=== PATIENT | female | born 1950 | race Two or more races ===

== ENCOUNTER 2024-04-03 20:45 | Emergency (ER) | payer MEDICARE, MEDICAID, SELFPAY ==
[2024-04-03 20:45] VITALS: BMI 28.2
[2024-04-03 20:56] VITALS: BP 209/111; BP 217/103; PULSE 72; RESP 18; TEMP 36.9; O2SAT 97
[2024-04-03 21:00] VITALS: BP 162/104; PULSE 99; RESP 18; O2SAT 97
--- NOTE | 2024-04-03 21:12 | XR_ITS ---
Examination: CT brain head without contrast. 2-D sagittal coronal reconstructions Date and time of exam:April 03, 2024 2131 hrs. , History multiple myeloma Indications: Headache beginning 3 days ago Comparison: 01/18/2024 CTDI: vol (mGy):44.3 DLP: (mGycm):824 Technique: Multiple CT axial sections of the brain have been obtained, 5 mm slice thickness. Contrast has not been administered. 2-D sagittal, coronal reconstructions have been obtained Low dose protocols were performed. One or more of the following dose reduction techniques were used; automated exposure control, adjustment of the mA and/or KV according to patient size, use of iterative reconstruction technique. Findings: No significant ventricular enlargement. Intra-axial or extra-axial hemorrhage density is not seen. Calcified mass in the left cerebellopontine angle 11 mm again noted likely incidental meningioma Basal cisterns are not remarkable. Fourth ventricle is midline. Again noted 35mm osteolytic lesion right posterior parietal bone Again noted Impression: Negative for acute hemorrhage, mass effect or midline shift Again noted 35mm osteolytic lesion right parietal bone Again noted calcified mass likely meningioma left cerebellopontine angle
--- NOTE | 2024-04-03 21:12 | XR_ITS ---
Examination: PA chest single view Technique: Upright PA chest single view Exam date and time: April 03, 20242 hrs. Indications: Chest pain today Findings: Normal heart size Lungs are clear. The osseous structures are intact Impression: No active disease
--- NOTE | 2024-04-03 21:12 | PD.EDRME ---
Rapid Medical Screening Exam E Arrival date/time: 04/03/24 20:45 73F with history of HTN and bone cancer presents to ED with 3 days of worsening CARVER and CP. Chief Complaint: Headache Vital signs: Vital Signs Temperature 98.4 F 04/03/24 20:56 Pulse Rate 72 04/03/24 20:56 Respiratory Rate 18 04/03/24 20:56 Blood Pressure 209/111 H 04/03/24 20:56 Pulse Oximetry (%) 97 04/03/24 20:56 Oxygen Delivery Method Room Air 04/03/24 20:56
[2024-04-03 21:37] VITALS: BP 191/132; PULSE 103; RESP 18; O2SAT 95
--- NOTE | 2024-04-03 21:40 | EDNOTE_ITS ---
ED Headache RME/HPI General Chief Complaint: Headache Stated Complaint: HEADACHE, CHEST/BACK PAIN Time Seen by Provider: 04/03/24 21:39 Arrival date/time: 04/03/24 20:45 RME / HPI RME / HPI Narrative: 73-year-old female patient with significant history of multiple myeloma, hypertension came in for evaluation regarding headache. Patient still having headache for the last 4 days, described as pulsating, top of the head, severity 5 out of 10. Also complaining of chest pain, radiating to the back for the last 4 days. Denies any cough. Denies any shortness of breath. Denies any slurring of speech denies any upper or lower extremity weakness. Patient is ambulatory. Patient also denies any nausea or vomiting. No fever was noted. Denies any other complaints. Related Data Home Medications ?Medication ?Instructions ?Recorded ?Confirmed naproxen 500 mg tablet (Naprosyn) 500 mg PO BID #0 tabs 12/30/16 10/05/20 benazepril 40 mg tablet 40 mg PO QDAY 10/05/20 10/05/20 dexamethasone 4 mg tablet 20 mg PO QWEEK 10/05/20 10/05/20 lenalidomide 10 mg capsule 10 mg PO QDAY 10/05/20 10/05/20 (Revlimid) pravastatin 40 mg tablet 40 mg PO HS 10/05/20 10/05/20 Previous Rx's ?Medication ?Instructions ?Recorded docusate sodium 100 mg tablet 100 mg PO BID #20 tabs 02/22/23 gabapentin 100 mg capsule 100 mg PO TID #20 caps 02/22/23 cephalexin 500 mg capsule 500 mg PO BID #10 caps 12/18/23 ondansetron 4 mg disintegrating 4 mg PO Q8H PRN nausea and 01/18/24 tablet vomiting #14 tabs ibuprofen 600 mg tablet 600 mg PO TID PRN pain #30 tabs 04/03/24 Allergies Allergy/AdvReac Type Severity Reaction Status Date / Time No Known Allergies Allergy Verified 04/03/24 20:47 Review of Systems Review of Systems Narrative Review of Systems: Review of system reviewed and within normal limits except mentioned in HPI ED Exam Narrative Physical exam: VITAL SIGNS: Reviewed. GENERAL APPEARANCE: Alert and interactive, follows commands, no acute distress, HEAD AND FACE: Non-traumatic. ENT: PERRL, pink conjunctivitis, eyelid no trauma, Mucous membrane moist. NECK: Supple, nontender, no nuchal rigidity. CHEST: No tenderness, no crepitus, no paradoxical movement, no retractions. LUNGS: Clear, well ventilated, symmetric, no rales, no wheezing, no ronchi, no stridor, good breath sounds bilaterally. HEART: Regular rate, regular rhythm, no murmur, no gallops. ABDOMEN: Soft, positive bowel sounds, nondistended, no guarding, nontender, no rebound, no masses, RECTAL: Deferred. GENITAL: Deferred. NEUROLOGICAL: Gross motor function intact sensory function intact, Appropriate for age. MUSCULOSKELETAL: low back nontender, full range of motion. EXTREMITIES: Nontender, full range of motion. SKIN: Color pink, dry, no rash, no lacerations, no abrasions, no contusions. LYMPHATICS: Deferred. Course Quality Measures none Orders Category Date Time Status EKG (ED ONLY) *Do not use* NOW Care 04/03/24 21:[address] head/brain wo con Stat Exams 04/03/24 21:12 Completed EKG (ED Only) Stat Exams 04/03/24 21:07 Ordered XR chest 1V portable Stat Exams 04/03/24 21:12 Completed CBC Stat Lab 04/03/24 21:55 Completed Comprehensive Metabolic Panel Stat Lab 04/03/24 21:55 Results Troponin I Stat Lab 04/03/24 21:55 Results Urinalysis Stat Lab 04/03/24 22:03 Completed Acetaminophen Tab [Tylenol ES Tab] Med 04/03/24 21:48 Discontinued 1,000 mg PO X1 ONE Labetalol IV [Trandate IV] Med 04/03/24 21:48 Discontinued 10 mg IVP X1 ONE Metoclopramide [Reglan] Med 04/03/24 21:48 Discontinued 10 mg PO X1 ONE Vital Signs Vital signs: Vital Signs Temperature 98.4 F 04/03/24 20:56 Pulse Rate 72 04/03/24 20:56 Respiratory Rate 18 04/03/24 20:56 Blood Pressure 209/111 H 04/03/24 20:56 Pulse Oximetry (%) 97 04/03/24 20:56 Oxygen Delivery Method Room Air 04/03/24 20:56 Headache MDM Narrative MDM Narrative:: 73-year-old female patient with significant history of multiple myeloma, hypertension came in for evaluation regarding headache. Patient still having headache for the last 4 days, described as pulsating, top of the head, severity 5 out of 10. Also complaining of chest pain, radiating to the back for the last 4 days. Denies any cough. Denies any shortness of breath. Denies any slurring of speech denies any upper or lower extremity weakness. Patient is ambulatory. Patient also denies any nausea or vomiting. No fever was noted. Denies any other complaints. Patient was given Tylenol and Reglan with complete resolution of headache. Patient's workup today all came back normal troponin is normal EKG within normal limits. Patient's CT scan of the head came back with no acute pathology. Except for osteolytic lesion right parietal bone and calcified mass likely meningioma left cerebellopontine angle with this was noted also from previous CT scan of the head. Results discussed with the patient's and family. Patient data External records reviewed:: None Clinical information provided by:: none Social determinants that could affect healthcare access:: none Patient has the following chronic illnesses:: Multiple myeloma How is presenting disease/condition affected by chronic disease/condition?: exacerbated by Evaluation data The following diagnostics were reviewed and interpreted by me:: lab results, radiology exam(s) and EKG tracing(s) Lab and/or radiology exams considered but not ordered:: None Interpretation Summary: EKG as interpreted by me showed sinus rhythm, ventricular rate of 74 bpm, MN interval 162 MS, no ST segment ovation depression noted. I personally reviewed and interpreted the x-ray of this patient. There is no acute abnormalities fo und, no infiltrates no pneumothorax no hemothorax normal chest x-ray. Review of other structures was without significant abnormal findings also. I additionally reviewed the radiologist report and agree with the interpretation. CT scan of the head showed Negative for acute hemorrhage, mass effect or midline shift Again noted 35mm osteolytic lesion right parietal bone Again noted calcified mass likely meningioma left cerebellopontine angle Laboratory workup all came back unremarkable including normal troponin, CBC is normal, urinalysis no UTI. Troponin is normal, CMP unremarkable. Medications / Prescriptions Medications or Prescriptions considered but not ordered:: None Medication administrations:: Medication Administration History Discontinued Medications Acetaminophen (Acetaminophen 500 Mg Tablet) 1,000 mg PO X1 ONE Stop: 04/03/24 21:49 Labetalol HCl (Labetalol Inj 5 Mg/Ml Vial 20 Ml) 10 mg IVP X1 ONE Stop: 04/03/24 21:49 Last Admin: 04/03/24 22:56 Dose: Not Given Documented By: TC Non-Admin Reason: Change of Condition Metoclopramide HCl (Metoclopramide 5 Mg Tablet) 10 mg PO X1 ONE Stop: 04/03/24 21:49 Tylenol, Reglan Consultations Consultation(s) initiated? (list below): No Diagnosis Differential diagnosis headache: migraine, headache and other Most likely diagnosis given after review of the tests above:: Headache Admission Indicated Admission indicated?: not indicated Explain why admission is indicated or not indicated:: Stable for discharge, patient verbalized complete resolution of headache after Reglan and Tylenol Admission Request Was there a request for admission?: No Disposition Plan Disposition Plan: Discharge Discharge Attestation Discharge Attestation: The patient and all family members were given an opportunity to ask questions and understood the discharge instructions. Discharge instructions specifically effects, indications for sooner follow up or return to the emergency department, and the expected course of current diagnosis. Patient condition: Stable Discharge Plan Plan Patient Disposition: HOME (Self Care) Disposition Comment: Stable Prescriptions/Referrals Prescriptions/Med Rec: New ibuprofen 600 mg tablet 600 mg PO TID PRN (Reason: pain) Qty: 30 0RF No Action naproxen [Naprosyn] 500 MG tablet 500 mg PO BID Qty: 0 Patient Comments: PRN PAIN pravastatin 40 mg Tablet 40 mg PO HS dexamethasone 4 mg tablet 20 mg PO QWEEK Rx Instructions: TUESDAYS. benazepril 40 mg Tablet 40 mg PO QDAY Revlimid 10 mg Capsule 10 mg PO QDAY gabapentin 100 mg capsule 100 mg PO TID Qty: 20 0RF docusate sodium 100 mg tablet 100 mg PO BID Qty: 20 0RF cephalexin 500 mg capsule 500 mg PO BID Qty: 10 0RF ondansetron 4 mg tablet,disintegrating 4 mg PO Q8H PRN (Reason: nausea and vomiting) Qty: 14 0RF Referrals: Elver Reyes MD [Primary Care Provider] - In 1 week Problem List Clinical Impression: Headache, History of multiple myeloma Patient/Caregiver Discharge Instructions Education Materials: Self-Care for Headaches Additional Instructions: Thank you for the opportunity for serving you today. You are stable for discharged . You are advised to: Follow-up with your PCP in 1 to 2 days Return to ED for worsening of symptoms Increase oral fluids Take medication as prescribed Print Language: B[place] Stand Alone Forms: Kelsi Award Info., Patient Portal Info Letter PA/PRABHAKAR Supervising Physician MAU/PRABHAKAR Supervising Physician: MD Precious
[2024-04-03 22:01] LABS: Basophils % (Auto) 0 % (0-2.5); Eosinophils # (Auto) 0.1 Thou/mm3 (0.0-0.5); Eosinophils % (Auto) 1 % (0-10); Hematocrit 36.7 % (36.0-46.0); Hemoglobin 13.3 g/dL (12.0-16.0); Immature Granulocytes % (Auto) 0 % (0-0); Immature Granulocytes Auto 0.01 Thou/mm3 (0.00-0.00); Lymphocytes # (Auto) 1.6 Thou/mm3 (1.0-4.8); Lymphocytes % (Auto) 35 % (10-50); Mean Corpuscular HGB Conc 36.2 g/dl (31.0-37.0); Mean Corpuscular Hemoglobin 32.4 pg (25.0-35.0); Mean Corpuscular Volume 89 fL (80-100); Monocytes # (Auto) 0.5 Thou/mm3 (0.0-0.8); Monocytes % (Auto) 10 % (0-12); Neutrophils # (Auto) 2.4 Thou/mm3 (1.8-7.7); Neutrophils % (Auto) 53 % (37-80); Nucleated Red Blood Cell % 0 /100 WBC (0); Platelet Count 252 Thou/mm3 (140-440); RDW Standard Deviation 39.8 fL (36.4-46.3); Red Blood Count 4.11 Miln/mm3 (4.00-5.20); White Blood Count 4.6 Thou/mm3 (3.6-11.0)
[2024-04-03 22:11] LABS: Collection Type, Urine Clean Catch
[2024-04-03 22:13] VITALS: BP 162/79; PULSE 74; RESP 16; O2SAT 98
[2024-04-03 22:14] LABS: Bilirubin,Urine Negative (Negative); Blood,Urine Trace (Negative); Clarity,Urine Clear (Clear/Hazy); Color,Urine Colorless (Lt Yel-Yel); Glucose, Urine Negative (Negative); Ketones,Urine Negative (Negative); Leukocyte Esterase,Urine Negative (Negative); Nitrite,Urine Negative (Negative); PH,Urine 7.5 (5.0-7.0); Protein,Urine Negative (Neg - Trace); RBC,Urine 1 /hpf (0-3); Specific Gravity,Urine 1.008 (1.001-1.035); Squamous Epithelial Cell,Urine < 1 /hpf (0-5); Urobilinogen,Urine Negative mg/dL (0.0-1.0); WBC,Urine 1 /hpf (0-5)
[2024-04-03 22:59] LABS: Alanine Aminotransferase 24 U/L (10-49); Albumin, Serum 4.9 gm/dL (3.4-4.8); Albumin/Globulin Ratio 2.5 (1.2-2.2); Alkaline Phosphatase 73 U/L (46-116); Anion Gap 7 (7-16); Aspartate Amino Transferase 26 U/L (0-34); BUN/Creatinine Ratio 20 Ratio (12-20); Blood Urea Nitrogen 16 mg/dL (9-23); Calcium 10.3 mg/dL (8.3-10.6); Calcium (Corrected) 10.3 mg/dL (8.5-10.1); Carbon Dioxide 27.9 mMol/L (20.0-31.0); Chloride 98 mMol/L (98-107); Creatinine (Component) 0.8 mg/dL (0.6-1.3); Estimated Creatinine Clearance 45.2 mL/min (>60); Glucose 93 mg/dL (74-106); Osmolality,Calculated 267 (275-295); Potassium 3.9 mMol/L (3.4-5.1); Sodium 133 mMol/L (136-145); Total Protein 6.9 gm/dL (5.7-8.2); Troponin I < 0.002 ng/mL (0.0-0.045); eGFR > 60 See Note
[2024-04-03 23:14] LABS: Bilirubin,Total 0.7 mg/dL (0.3-1.2)
[2024-04-03] MEDS: ACETAMINOPHEN 500 MG TABLET 1000 MG PO (23:35)
[2024-04-03] MEDS: METOCLOPRAMIDE 5 MG TABLET 10 MG PO (23:35)
[2024-04-04 00:11] VITALS: BP 146/89; PULSE 67; RESP 16; TEMP 36.8; O2SAT 100
== END 2024-04-04 00:13 | disposition home or self-care (01) ==
PROVIDERS: Physician Assistant; Emergency Provider Emergency Medicine; PCP Pediatrics
DX: R51.9 Headache, unspecified (principal); C90.00 Multiple myeloma not having achieved remission; R07.9 Chest pain, unspecified; M89.58 Osteolysis, other site; G93.89 Other specified disorders of brain; I10 Essential (primary) hypertension
CPT/HCPCS: 36415; 70450; 71045; 80053; 81001; 84484; 85025; 93005; 99284; A9270

== ENCOUNTER → 2024-05-15 | Outpatient (CLI) | payer MEDICARE, MEDICAID, SELFPAY ==
--- NOTE | 2024-05-15 12:30 | XR_ITS ---
Examination: Abdomen sonogram, complete Date and time of exam: May 15, 2024 1316 hours INDICATIONS: Lower abdominal pain beginning 2 months ago. Technique: Multiple real-time grayscale transabdominal sonographic images of the abdomen have been obtained. Findings: Normal gallbladder Normal common bile duct 0.3 cm Pancreatic head 2.1 cm Aorta not enlarged Liver 13.9 cm smooth contour no focal liver lesions Normal hepatopedal portal venous flow Patent IVC Right kidney 9.4 x 4.9 x 5.4 cm cortex 1.5 cm Minimal right hydronephrosis Left kidney 9.6 x 5.2 x 5.4 cm cortex 2.1 cm Mild bilateral renal parenchymal scar formation Spleen 8.7 cm IMPRESSION: Normal gallbladder Liver normal size no focal liver lesions Minimal right hydronephrosis, clinical correlation advised
== END | disposition home or self-care (01) ==
PROVIDERS: Referring Provider Nurse Practitioner Family; Visit Provider Nurse Practitioner Family
DX: N13.30 Unspecified hydronephrosis (principal)
CPT/HCPCS: 76700

== ENCOUNTER → 2024-06-05 | Outpatient (BNVA) | payer MEDICARE, MEDICAID, SELFPAY | END | disposition home or self-care (01) | PROVIDERS: PCP Nurse Practitioner Family; Referring Provider Nurse Practitioner Family; Visit Provider Urology | DX: R31.29 Other microscopic hematuria (principal); I10 Essential (primary) hypertension; E66.9 Obesity, unspecified; Z68.24 Body mass index [BMI] 24.0-24.9, adult; C90.00 Multiple myeloma not having achieved remission; E78.00 Pure hypercholesterolemia, unspecified; K21.9 Gastro-esophageal reflux disease without esophagitis | CPT/HCPCS: 81003; 99212; G0463 ==

== ENCOUNTER → 2024-07-17 | Outpatient (CLI) | payer MEDICARE, MEDICAID, SELFPAY ==
--- NOTE | 2024-07-17 10:39 | XR_ITS ---
Examination: CT abdomen and pelvis without contrast. Coronal 3-D reconstructions. Sagittal 2-D reconstructions. Date and time of exam:July 17, 2024 1136 hours INDICATIONS: Abdominal pain beginning 12 months ago CTDI: vol (mGy): 6.64 DLP: (mGycm): 299 Technique: Axial images of the abdomen have been obtained, 3 mm slice thickness Intravenous contrast material has not been administered. Low dose protocols were performed. One or more of the following dose reduction techniques were used; automated exposure control, adjustment of the mA and/or KV according to patient size, use of iterative reconstruction technique. Findings: No focal liver or splenic lesions No gallstones No pancreatic mass Normal adrenal glands No renal or ureteral calculi, no hydronephrosis Aorta normal size Normal appendix No bowel obstruction No diverticulitis Anteverted uterus No adnexal mass No bladder mass or bladder calculi Tiny fat-containing left common femoral hernia Grade 1 anterolisthesis L4 on L5 with moderate disc narrowing L4-L5 Moderate narrowing left hip joint IMPRESSION: No renal or ureteral calculi Normal appendix No bowel obstruction or diverticulitis
== END | disposition home or self-care (01) ==
PROVIDERS: PCP Nurse Practitioner Family; Referring Provider Nurse Practitioner Family; Visit Provider Nurse Practitioner Family
DX: N13.30 Unspecified hydronephrosis (principal)
CPT/HCPCS: 74176; Q9963

== ENCOUNTER 2024-09-11 17:56 | Emergency (ER) | payer MEDICARE, MEDICAID, SELFPAY ==
[2024-09-11 18:03] VITALS: BP 168/98; PULSE 85; RESP 17; TEMP 37; O2SAT 97; BMI 22.9
--- NOTE | 2024-09-11 18:30 | EDRME_ITS ---
Rapid Medical Screening Exam [facility] Arrival date/time: 09/11/24 17:56 74F with history of multiple myeloma and HTN presents to ED with 3 days of CARVER, N/V, and dizziness. Chief Complaint: Headache Vital signs: Vital Signs Temperature 98.6 F 09/11/24 18:03 Pulse Rate 85 09/11/24 18:03 Respiratory Rate 17 09/11/24 18:03 Blood Pressure 168/98 H 09/11/24 18:03 Pulse Oximetry (%) 97 09/11/24 18:03 Oxygen Delivery Method Room Air 09/11/24 18:03
--- NOTE | 2024-09-11 18:30 | XR_ITS ---
Examination: CT brain head without contrast. 2-D sagittal coronal reconstructions Date and time of exam:September 11, 2024 1840 hours Comparison April 03, 2024 INDICATIONS: Headache weakness beginning 3 days ago CTDI: vol (mGy):4522 DLP: (mGycm):827 Technique: Multiple CT axial sections of the brain have been obtained, 5 mm slice thickness. Contrast has not been administered. 2-D sagittal, coronal reconstructions have been obtained Low dose protocols were performed. One or more of the following dose reduction techniques were used; automated exposure control, adjustment of the mA and/or KV according to patient size, use of iterative reconstruction technique. Findings: Ventricles are not enlarged No mass effect upon the ventricular system Large osteolytic defect right parietal bone measures 38 mm in length compared to 36 mm on April 03, 2024 Again noted a calcified mass likely meningioma in the left cerebellopontine angle IMPRESSION: No interval hemorrhage mass effect or midline shift Large osteolytic defect right parietal bone again noted Stable calcified mass left cerebellopontine angle, likely meningioma Consider repeat MRI brain follow up, elective, pre and postcontrast to exclude meningeal tumor enhancement at the site of the large right parietal osteolytic defect
[2024-09-11 19:10] LABS: Basophils % (Auto) 0 % (0-2.5); Eosinophils % (Auto) 0 % (0-10); Hematocrit 34.3 % (36.0-46.0); Hemoglobin 12.1 g/dL (12.0-16.0); Immature Granulocytes % (Auto) 0 % (0-0); Immature Granulocytes Auto 0.02 Thou/mm3 (0.00-0.00); Lymphocytes # (Auto) 1.1 Thou/mm3 (1.0-4.8); Lymphocytes % (Auto) 19 % (10-50); Mean Corpuscular HGB Conc 35.3 g/dl (31.0-37.0); Mean Corpuscular Hemoglobin 31.3 pg (25.0-35.0); Mean Corpuscular Volume 89 fL (80-100); Monocytes # (Auto) 0.4 Thou/mm3 (0.0-0.8); Monocytes % (Auto) 8 % (0-12); Neutrophils # (Auto) 4.2 Thou/mm3 (1.8-7.7); Neutrophils % (Auto) 73 % (37-80); Nucleated Red Blood Cell % 0 /100 WBC (0); Platelet Count 261 Thou/mm3 (140-440); RDW Standard Deviation 41.1 fL (36.4-46.3); Red Blood Count 3.86 Miln/mm3 (4.00-5.20); White Blood Count 5.8 Thou/mm3 (3.6-11.0)
[2024-09-11 19:19] LABS: Collection Type, Urine Clean Catch; Squamous Epithelial Cell,Urine 0 /hpf (0-5)
[2024-09-11 19:26] LABS: Bilirubin,Urine Negative (Negative); Blood,Urine 2+ (Negative); Clarity,Urine Clear (Clear/Hazy); Color,Urine Lt-Yellow (Lt Yel-Yel); Culture Indicated,Urine Not Indicated; Glucose, Urine Negative (Negative); Ketones,Urine Negative (Negative); Leukocyte Esterase,Urine Negative (Negative); Nitrite,Urine Negative (Negative); Protein,Urine Trace (Neg - Trace); RBC,Urine 40 /hpf (0-3); Specific Gravity,Urine 1.015 (1.001-1.035); Urobilinogen,Urine Negative mg/dL (0.0-1.0); WBC,Urine 2 /hpf (0-5)
[2024-09-11 19:33] LABS: Alanine Aminotransferase 31 U/L (10-49); Albumin/Globulin Ratio 2.6 (1.2-2.2); Alkaline Phosphatase 75 U/L (46-116); Anion Gap 7 (7-16); Aspartate Amino Transferase 28 U/L (0-34); BUN/Creatinine Ratio 22 Ratio (12-20); Blood Urea Nitrogen 13 mg/dL (9-23); Calcium 9.7 mg/dL (8.3-10.6); Calcium (Corrected) 9.7 mg/dL (8.5-10.1); Carbon Dioxide 29.4 mMol/L (20.0-31.0); Chloride 97 mMol/L (98-107); Creatinine (Component) 0.6 mg/dL (0.6-1.3); Estimated Creatinine Clearance 59.5 mL/min (>60); Globulin 1.9 gm/dL (2.3-3.5); Glucose 115 mg/dL (74-106); Osmolality,Calculated 267 (275-295); Potassium 3.4 mMol/L (3.4-5.1); Sodium 133 mMol/L (136-145); Total Protein 6.9 gm/dL (5.7-8.2); Troponin I < 0.002 ng/mL (0.0-0.045); eGFR > 60 See Note
--- NOTE | 2024-09-11 20:43 | EDNOTE_ITS ---
<Statement entered by Seema Wang MD - 09/13/24 05:38> I, Semea Wang MD, have reviewed the history, exam, and assessment of the patient. I have evaluated the patient independently and agree with the plan of care documented by [ ]. All diagnostic studies were reviewed and discussed. I confirm the diagnosis as documented by the Resident. I was present during the Medical Decision Making for this patient. The patient's plan of care was created between myself and the Resident and consistent with our discussion of the patient's case. ED General RME/HPI General Chief complaint: Headache Stated complaint: HEADACHE, NAUSEA, VOMITING X 3 DAYS Arrival date/time: 09/11/24 17:56 RME / HPI RME / HPI narrative: 09/11/24 17:56 This 74F with history of multiple myeloma and HTN presents to ED with 3 days of CARVER, N/V, and dizziness. She reported that she started having headache with mild neck stiffness from a week ago and took Tylenol and Ibuprofen. Patient reported that she took her losartan?hydrochlorothiazide this morning to help with the blood pressure and does not take blood pressure at home. She also reported to have mild burning in the PE. She also had nausea and mild epigastric discomfort with subjective feeling of fever. Vitals showed elevated blood pressure. Labs were insignificant with stable kidney functions. Head CT showed no acute changes except for old changes Large osteolytic defect right parietal bone again noted Stable calcified mass left cerebellopontine angle, likely meningioma. She was also complaining of mild dizziness. We ordered hydralazine 25 mg, [place] x 1 and meclizine x 1. No photophobia/phonophobia associated with the headache. Patient eloped from the ED. complaint: Headache Onset (ago): week(s) (1) Location: head and neck Radiation: non-radiation Severity: moderate Severity scale (1-10): 5 Quality: aching Consistency: constant Relieving factors: none Associated symptoms: nausea/vomiting and weakness Related Data Home Medications ?Medication ?Instructions ?Recorded ?Confirmed naproxen 500 mg tablet (Naprosyn) 500 mg PO BID #0 tab s 12/30/16 09/11/24 benazepril 40 mg tablet 40 mg PO QDAY 10/05/2009/11 dexamethasone 4 mg tablet 20 mg PO QWEEK 10/05/2007/07 lenalidomide 10 mg capsule 10 mg PO QDAY 10/05/2007/07 (Revlimid) pravastatin 40 mg tablet 40 mg PO HS 10/05/20 5 Previous Rx's ?Medication ?Instructions ?Recorded docusate sodium 100 mg tablet 100 mg PO BID #20 tabs 1 gabapentin 100 mg capsule 100 mg PO TID #20 caps 02/22 cephalexin 500 mg capsule 500 mg PO BID #10 caps 12/17 ondansetron 4 mg disintegrating 4 mg PO Q8H PRN nausea and 01/18/24 tablet vomiting #14 tabs ibuprofen 600 mg tablet 600 mg PO TID PRN pain #30 t abs 04/03/24 Allergies Allergy/AdvReac Type Severity Reaction Status Date / Time No Known Allergies Allergy Verified 09/11/24 17:58 Review of Systems Review of Systems Systems Reviewed: All systems reviewed, normal except as documented Past Medical History Past Medical History CARDIAC: Positive Hypercholesterolemia and Hypertension; Negative Cardiac Disorders or Congestive Heart Failure RESPIRATORY: Negative Chronic Obstructive Pulmonary Disease (COPD) or Asthma GENITOURINARY: Negative Renal Disease ENDOCRINE: Negative Diabetes Mellitus Type 1 or Diabetes Mellitus Type 2 HEMATOLOGIC: Negative Sickle Cell Disease OTHER HISTORY: Positive Cancer (myeloma) Social History SMOKING STATUS: Never smoker ED Exam Narrative Physical exam: GENERAL APPEARANCE: AxOx4, generally well-appearing female in mild distress due to headache. HEENT: NC, AT. MMM. EOMI, clear conjunctiva, oropharynx clear. No neck stiffness noted. NECK: Supple without lymphadenopathy. No stiffness or restricted ROM. HEART: Regular rate and regular rhythm, normal S1/S2, no m/r/g LUNGS: CTAB, moving air well. No crackles or wheezes are heard. ABDOMEN: Soft, mild epigastric discomfort., nondistended with good bowel sounds heard. BACK: No CVAT, no obvious deformity. EXTREMITIES: Without cyanosis, clubbing or edema. NEUROLOGICAL: Grossly nonfocal. Alert and oriented, moving all 4 extremities. CN not formally tested but appear grossly intact. Observed to ambulate with normal gait. Skin: Warm and dry without any rash. Psych: Appropriate mood and affect Course Quality Measures none Orders Category Date Time Status CT head/brain wo con Stat Exams 09/11/24 18:30 Completed CBC Stat Lab 09/11/24 18:48 Completed CMP [Comprehensive Metabolic Panel] Stat Lab 09/11/24 18:48 Completed Troponin I Stat Lab 09/11/24 18:48 Completed Urinalysis, C/S if Indicated Stat Lab 09/11/24 19:08 Completed HYDROcodone*/APAP 5/325 [[place] 5/325] Med 09/11/24 20:42 Discontinued 1 tab PO X1 ONE Meclizine HCl [Antivert] Med 09/11/24 20:42 Discontinued 25 mg PO X1 ONE hydrALAZINE HCL [Apresoline] Med 09/11/24 20:42 Discontinued 25 mg PO X1 ONE Vital Signs Vital signs: Vital Signs Temperature 98.6 F 09/11/24 18:03 Pulse Rate 85 09/11/24 18:03 Respiratory Rate 17 09/11/24 18:03 Blood Pressure 168/98 H 09/11/24 18:03 Pulse Oximetry (%) 97 09/11/24 18:03 Oxygen Delivery Method Room Air 09/11/24 18:03 Discharge Plan Plan Patient Disposition: Elopement Discharge Disposition comment: pt walked out of ed room at this time. Prescriptions/Referrals Prescriptions/Med Rec: No Action naproxen [Naprosyn] 500 MG tablet 500 mg PO BID Qty: 0 Patient Comments: PRN PAIN pravastatin 40 mg Tablet 40 mg PO HS dexamethasone 4 mg tablet 20 mg PO QWEEK Rx Instructions: TUESDAYS. benazepril 40 mg Tablet 40 mg PO QDAY Revlimid 10 mg Capsule 10 mg PO QDAY gabapentin 100 mg capsule 100 mg PO TID Qty: 20 0RF docusate sodium 100 mg tablet 100 mg PO BID Qty: 20 0RF cephalexin 500 mg capsule 500 mg PO BID Qty: 10 0RF ibuprofen 600 mg tablet 600 mg PO TID PRN (Reason: pain) Qty: 30 0RF ondansetron 4 mg tablet,disintegrating 4 mg PO Q8H PRN (Reason: nausea and vomiting) Qty: 14 0RF Referrals: No Primary/Family,Physician [Primary Care Provider] - In 1 week Problem List Clinical Impression: Headache Patient/Caregiver Discharge Instructions Print Language: [place] MDM Medication Administration(s) Medication Administration History Discontinued Medications Hydrocodone Bitart/Acetaminophen (Hydrocodone/Apap 5/325 Tablet) 1 tab PO X1 ONE Stop: 09/11/24 20:43 Last Admin: 09/11/24 20:52 Dose: 1 tab Documented By: JAVIER Hydralazine HCl (Hydralazine Hcl 25 Mg Tablet) 25 mg PO X1 ONE Stop: 09/11/24 20:43 Last Admin: 09/11/24 20:52 Dose: 25 mg Documented By: JAVIER Meclizine HCl (Meclizine Hcl 25 Mg Tablet) 25 mg PO X1 ONE Stop: 09/11/24 20:43 Last Admin: 09/11/24 20:51 Dose: 25 mg Documented By: OA
[2024-09-11] MEDS: MECLIZINE HCL 25 MG TABLET PO (20:51)
[2024-09-11 20:52] VITALS: BP 168/98; PULSE 85
[2024-09-11] MEDS: hydrALAZINE HCL 25 MG TABLET PO (20:52)
[2024-09-11] MEDS: HYDROcodone/APAP 5/325 TABLET 1 TAB PO (20:52)
--- NOTE | 2024-09-11 21:11 | PC.NURSE ---
Pt walked out of ed room at this time.
== END 2024-09-11 21:12 | disposition left against medical advice (07) ==
LOC: SERX 20:07
PROVIDERS: Physician Assistant; Emergency Provider Emergency Medicine
DX: R51.9 Headache, unspecified (principal); I10 Essential (primary) hypertension; C90.00 Multiple myeloma not having achieved remission
CPT/HCPCS: 36415; 70450; 80053; 81001; 84484; 85025; 99281; A9270

== ENCOUNTER → 2024-09-11 | Outpatient (BNVA) | payer MEDICARE, MEDICAID, SELFPAY | END | disposition home or self-care (01) | PROVIDERS: PCP Nurse Practitioner Family; Referring Provider Nurse Practitioner Family; Visit Provider Urology | DX: N30.90 Cystitis, unspecified without hematuria (principal); N35.92 Unspecified urethral stricture, female; I10 Essential (primary) hypertension; E78.00 Pure hypercholesterolemia, unspecified; K21.9 Gastro-esophageal reflux disease without esophagitis | CPT/HCPCS: 52224; 81003; 96372; A4217; A4649; C1894; J1580; A9270 ==

== ENCOUNTER → 2024-12-25 | Outpatient (BNVA) | payer MEDICARE, MEDICAID, SELFPAY | END | disposition home or self-care (01) | PROVIDERS: PCP Nurse Practitioner Family; Referring Provider Nurse Practitioner Family; Visit Provider Urology | DX: R31.29 Other microscopic hematuria (principal); I10 Essential (primary) hypertension; E66.9 Obesity, unspecified; Z68.23 Body mass index [BMI] 23.0-23.9, adult; E78.00 Pure hypercholesterolemia, unspecified; K21.9 Gastro-esophageal reflux disease without esophagitis | CPT/HCPCS: 81003; 99212; G0463 ==

== ENCOUNTER → 2025-01-22 | Outpatient (CLI) | payer MEDICARE, MEDICAID, SELFPAY ==
--- NOTE | 2025-01-22 10:15 | XR_ITS ---
Examination: Abdomen sonogram, Limited Date and time of exam: January 22, 2025, 1034 hours INDICATIONS: Left lower abdominal pain beginning 6 months ago Technique: Real-time donaldson scale transabdominal sonographic images of the upper abdomen obtained. Findings: Left lower abdomen hernia defect 2.6 x 1.1 x 2.1 cm IMPRESSION: Left lower abdomen hernia defect 2.6 x 1.1 x 2.1 cm
== END | disposition home or self-care (01) ==
LOC: CDIM 10:16
PROVIDERS: PCP Physician Assistant; Referring Provider Physician Assistant; Visit Provider Physician Assistant
DX: K46.9 Unspecified abdominal hernia without obstruction or gangrene (principal)
CPT/HCPCS: 76705

== ENCOUNTER 2025-02-27 17:05 | Emergency (ER) | payer MEDICARE, MEDICAID, SELFPAY ==
[2025-02-27 17:06] VITALS: BMI 28.1
[2025-02-27 18:05] VITALS: BP 137/75; PULSE 68; RESP 17; TEMP 36.9; O2SAT 97
--- NOTE | 2025-02-27 18:21 | EDNOTE_ITS ---
ED Headache RME/HPI General Chief Complaint: Headache Stated Complaint: FACIAL PAIN WITH NECK PAIN X4 DAYS Time Seen by Provider: 02/27/25 18:33 Arrival date/time: 02/27/25 17:05 RME / HPI RME / HPI Narrative: See [facility] for Dr. Lang's HPI Documentation. Related Data Home Medications ?Medication ?Instructions ?Recorded ?Confirmed naproxen 500 mg tablet (Naprosyn) 500 mg PO BID #0 tab s 12/30/16 12/25/24 benazepril 40 mg tablet 40 mg PO QDAY 10/05/2012/25 dexamethasone 4 mg tablet 20 mg PO QWEEK 10/05/2012/11 lenalidomide 10 mg capsule 10 mg PO QDAY 10/05/2012/11 (Revlimid) pravastatin 40 mg tablet 40 mg PO HS 10/05/20 5 Previous Rx's ?Medication ?Instructions ?Recorded docusate sodium 100 mg tablet 100 mg PO BID #20 tabs 1 gabapentin 100 mg capsule 100 mg PO TID #20 caps 02/22 cephalexin 500 mg capsule 500 mg PO BID #10 caps 12/17 ondansetron 4 mg disintegrating 4 mg PO Q8H PRN nausea and 01/18/24 tablet vomiting #14 tabs ibuprofen 600 mg tablet 600 mg PO TID PRN pain #30 t abs 04/03/24 acetaminophen 300 mg-codeine 30 mg 2 tab PO Q8H PRN pa in #20 tabs 02/27/25 tablet amoxicillin 875 mg-potassium 1 tab PO BID #20 tabs clavulanate 125 mg tablet lidocaine 5 % topical patch 2 patch topical QDAY PRN p ain #30 02/27/25 (Lidoderm) ea Allergies Allergy/AdvReac Type Severity Reaction Status Date / Time No Known Allergies Allergy Verified 02/27/25 17:10 Review of Systems Review of Systems Systems Reviewed: All systems reviewed, normal except as documented Past Medical History Past Medical History NEUROLOGIC: Positive Neurological Disorders CARDIAC: Positive Hypercholesterolemia and Hypertension GASTROINTESTINAL: Positive Gastrointestinal Disorders and Gastroesophageal Reflux Disease REPRODUCTIVE: Positive Previous Pregnancies MUSCULOSKELETAL: Positive Musculoskeletal Disorders and Arthritis OTHER HISTORY: Positive Anesthesia Reactions (gets very sleppy and headache after) and Cancer (myeloma) Surgical History SURGICAL: Positive Section ED Exam Narrative Physical exam: See [facility] for Dr. Lang's Physical Exam Documentation. Course Quality Measures none Orders Category Date Time Status CT cervical spine wo con Stat Exams 02/27/25 18:[address] facial bones wo con Stat Exams 02/27/25 18:[address] head/brain wo con Stat Exams 02/27/25 18:34 Completed ACETAMINOPHEN w/COD 300-30 [Tylenol w/Cod #3] Med 02/27/25 18:39 Discontinued 2 tab PO X1 ONE Amoxicillin/Pot Clav 875 [Augmentin 875] Med 02/27/25 19:58 Discontinued 1 tab PO X1 ONE Ondansetron Odt [Zofran Odt] Med 02/27/25 18:39 Discontinued 4 mg PO X1 ONE Vital Signs Vital signs: Vital Signs Temperature 98.5 F 02/27/25 18:05 Pulse Rate 68 02/27/25 18:05 Respiratory Rate 17 02/27/25 18:05 Blood Pressure 137/75 H 02/27/25 18:05 Pulse Oximetry (%) 97 02/27/25 18:05 Oxygen Delivery Method Room Air 02/27/25 18:05 Headache [facility] Narrative [facility] Narrative:: This section includes all my notes and documentations, including HPI, PE, and ED course. Danilo Lang MD HPI: 74 y/o female with Hx of HTN and Hypercholesterolemia here with several days of headache and facial pain and neck pain. Has trouble localizing further. Occasional nausea. Has trouble describing the quality and quantity of the pain and describing the exacerbating/relieving factors. No speech or visual impairment. No loss of power in the arms or legs. No fever or chills.no numbness or tingling. No chest pain. No other complaints ROS: All negative except as documented in HPI. Physical Exam: General: Alert and oriented. No acute distress when remaining still. Eyes: Conjunctivae and lids clear. PERRL. EOMI. ENT: No nasal congestion. Pharynx normal. TM normal bilaterally. Neck: Supple. Heart: RRR. Lungs: No respiratory distress. Good air movement. No rhonchi, wheezing, rales. Abdomen: Soft and nontender. Normal bowel sounds. No distension. No rebound or guarding. Back: No CVA tenderness. Skin: Warm and dry. Neuro: Alert and oriented X 3. Cranial nerves II to XII grossly normal. No peripheral motor deficits. I reviewed all diagnostic test results: My review of the Head/Brain CT report is NAD. My review of the Facial Bones CT report is sinusitis. My review of the C-Spine CT report is degenerative disc disease C4-C5, C5-C6. At this point, diagnoses include: Sinusitis Neck Arthritis Treatment here included: Two Tylenol #3 Zofran ODT 4 mg Augmentin 875 orally She felt much better. Recommended more outpatient care. Based on my best medical judgment, made decision no further evaluation or treatment indicated at this time. Patient understands and agrees to the discharge instructions customized and printed, see below. Discharge Instructions from Dr. Lang printed for you: 1. Fortunately, there is no life-threatening condition. Such as stroke or brain tumor. 2. Your diagnoses include sinus infection and severe arthritis in the neck. See attached handouts. 3. Take Augmentin for the sinus infection. 4. Lidocaine patches and Tylenol with codeine for severe pain. 5. See a private doctor outside the ER on 03/01/2025 for recheck and further care. Ask to review all test results and official radiology reports, to make sure you receive all necessary follow-ups and monitoring. Ask for help with more investigation and care not available here in the ER. Such as MRI imaging studies and referrals to see specialists. 6. Seek immediate medical care with worsening or with any concerns. Danilo Lang MD Patient data External records reviewed:: [facility] previous records (Reviewed [facility] ED records from 09/11/24. Patient was seen for Headache.) Clinical information provided by:: patient Social determinants that could affect healthcare access:: none Patient has the following chronic illnesses:: Hypercholesterolemia, Hypertension, Gastroesophageal Reflux Disease, Arthritis How is presenting disease/condition affected by chronic disease/condition?: exacerbated by Evaluation data The following diagnostics were reviewed and interpreted by me:: radiology exam(s) Lab and/or radiology exams considered but not ordered:: None Interpretation Summary: I reviewed all diagnostic test results: My review of the Head/Brain CT report is NAD. My review of the Facial Bones CT report is sinusitis. My review of the C-Spine CT report is degenerative disc disease C4-C5, C5-C6. Medications / Prescriptions Medications or Prescriptions considered but not ordered:: None Medication administrations:: Medication Administration History Discontinued Medications Acetaminophen/Codeine Phosphate (Acetaminophen W/Cod 300-30 Tablet) 2 tab PO X1 ONE Stop: 02/27/25 18:40 Last Admin: 02/27/25 18:46 Dose: 2 tab Documented By: OA Amoxicillin/Clavulanate Potassium (Amoxicillin/Pot Clav 875 Tablet) 1 tab PO X1 ONE Stop: 02/27/25 19:59 Last Admin: 02/27/25 20:10 Dose: 1 tab Documented By: BD Ondansetron HCl (Ondansetron Odt 4 Mg Tabrap) 4 mg PO X1 ONE; Protocol Stop: 02/27/25 18:40 Last Admin: 02/27/25 18:47 Dose: 4 mg Documented By: OA Treatment here included: Two Tylenol #3 Zofran ODT 4 mg Augmentin 875 orally Consultations Consultation(s) initiated? (list below): No Diagnosis Differential diagnosis headache: migraine, tension headache, subarachnoid hemorrhage, headache and sinusitis Most likely diagnosis given after review of the tests above:: Sinusitis Neck Arthritis Admission Indicated Admission indicated?: not indicated Explain why admission is indicated or not indicated:: With significant improvement and no condition needing emergent intervention, th ere was no indication for admission. Admission Request Was there a request for admission?: No Disposition Plan Disposition Plan: Discharge Discharge Attestation Discharge Attestation: The patient and all family members were given an opportunity to ask questions and understood the discharge instructions. Discharge instructions specifically effects, indications for sooner follow up or return to the emergency department, and the expected course of current diagnosis. Patient condition: Stable Discharge Plan Plan Patient Disposition: HOME (Self Care) Prescriptions/Referrals Prescriptions/Med Rec: New acetaminophen-codeine 300-30 mg tablet 2 tab PO Q8H MDD 6 PRN (Reason: pain) Qty: 20 0RF lidocaine [Lidoderm] 5 % adhesive patch,medicated 2 patch topical QDAY PRN (Reason: pain) Qty: 30 0RF Rx Instructions: leave on most painful area for up to 12 hrs amoxicillin-pot clavulanate 875-125 mg tablet 1 tab PO BID Qty: 20 0RF No Action naproxen [Naprosyn] 500 MG tablet 500 mg PO BID Qty: 0 Patient Comments: PRN PAIN pravastatin 40 mg Tablet 40 mg PO HS dexamethasone 4 mg tablet 20 mg PO QWEEK Rx Instructions: TUESDAYS. benazepril 40 mg Tablet 40 mg PO QDAY Revlimid 10 mg Capsule 10 mg PO QDAY gabapentin 100 mg capsule 100 mg PO TID Qty: 20 0RF docusate sodium 100 mg tablet 100 mg PO BID Qty: 20 0RF cephalexin 500 mg capsule 500 mg PO BID Qty: 10 0RF ibuprofen 600 mg tablet 600 mg PO TID PRN (Reason: pain) Qty: 30 0RF ondansetron 4 mg tablet,disintegrating 4 mg PO Q8H PRN (Reason: nausea and vomiting) Qty: 14 0RF Referrals: Rishabh([facility]),Elver JEWEL SETTER [Primary Care Provider] - In 1 week Problem List Clinical Impression: Sinusitis, Neck arthritis Patient/Caregiver Discharge Instructions Discharge Activity: activity as tolerated Education Materials: ED Degenerative Disk Disease, ED Sinusitis (Antibiotic Treatment) Additional Instructions: Discharge Instructions from Dr. Lang printed for you: 1. Fortunately, there is no life-threatening condition. Such as stroke or brain tumor. 2. Your diagnoses include sinus infection and severe arthritis in the neck. See attached handouts. 3. Take Augmentin for the sinus infection. 4. Lidocaine patches and Tylenol with codeine for severe pain. 5. See a private doctor outside the ER on 03/01/2025 for recheck and further care. Ask to review all test results and official radiology reports, to make sure you receive all necessary follow-ups and monitoring. Ask for help with more investigation and care not available here in the ER. Such as MRI imaging studies and referrals to see specialists. 6. Seek immediate medical care with worsening or with any concerns. Instrucciones de ian del Dr. Lang impresas para usted: 1. Afortunadamente, no presenta ninguna afecci?n potencialmente mortal, zoraida un derrame cerebral o un tumor cerebral. 2. Era diagn?sticos incluyen infecci?n sinusal y artritis grave en el matty. Consulte los folletos adjuntos. 3. [place] Augmentin para la infecci?n sinusal. 4. Parches de lidoca?na y Tylenol con code?na para el dolor intenso. 5. Consulte a un m?dico privado fuera de urgencias el 01/03/2025 para scar revisi?n y atenci?n adicional. [place] la revisi?n de todos los resultados de las pruebas y los informes radiol?gicos oficiales para asegurarse de recibir todos los seguimientos y la monitorizaci?n necesarios. [place] ayuda con otras investigaciones y atenci?n que no est?n disponibles en urgencias, zoraida estudios de resonancia magn?julius y derivaciones a especialistas. 6. [place]que atenci?n m?dica inmediata si presenta empeoramiento o si tiene alguna inquietud. Print Language: Somali Stand Alone Forms: [employer] Award Info., Patient Portal Info Letter
--- NOTE | 2025-02-27 18:34 | XR_ITS ---
Examination: CT cervical spine without contrast 2-D sagittal reconstructions 2-D coronal reconstructions 3-D reconstructions. Exam date and time: February 27, 2025, 1924 hours, comparison December 29, 2016 INDICATIONS: Neck pain beginning 4 days ago CTDI:vol (mGy) 11.4 DLP: (mGycm) 226 Technique: Multiple 2 mm axial sections of the cervical spine have been obtained. The coronal and sagittal reconstructions have been obtained. 3-D reconstructions have been obtained. Low dose protocols were performed. One or more of the following dose reduction techniques were used; automated exposure control, adjustment of the mA and/or KV according to patient size, use of iterative reconstruction technique. Findings: Axial sections demonstrate intact base of the skull. C1 exhibit satisfactory relationship to the odontoid. No acute cervical vertebral body fracture seen. Alignment posterior spinous processes satisfactory. Advanced degenerative disc disease C4-C5, C5-C6 4 mm osteolytic area in the posterior C4 vertebral body not seen on the December 29, 2016 exam Impression: No acute cervical fracture. Advanced degenerative disc disease C4-C5, C5-C6 Consider MRI cervical spine follow-up pre and postcontrast to exclude osseous metastatic disease involving C5
--- NOTE | 2025-02-27 18:34 | XR_ITS ---
Examination: CT maxillofacial, without intravenous contrast. 2-D sagittal reconstructions. 3-D reconstructions. Date and time of exam: February 27, 2025, 192 hours INDICATIONS: Severe facial pain beginning 4 days ago CTDI: vol (mGy): 21.1 DLP: (mGycm): 412 Technique: Multiple axial images of maxillofacial region, 3.0 mm slice thickness. 2-D sagittal and coronal reconstructions. 3-D reconstructions. Low dose protocols were performed. One or more of the following dose reduction techniques were used; automated exposure control, adjustment of the mA and/or KV according to patient size, use of iterative reconstruction technique. Findings: Please see the CT brain report Frontal bone intact Orbital rims intact with symmetrical optic globes No depression zygomatic arches Pterygoid plates maxilla and the mandible intact IMPRESSION: No facial fracture or osteolytic facial lesion seen Moderate hypertrophy inferior nasal turbinates Mild chronic ethmoid sinusitis.
--- NOTE | 2025-02-27 18:34 | XR_ITS ---
Examination: CT brain head without contrast. 2-D sagittal coronal reconstructions Date and time of exam: February 27, 2025, 1922 hours, comparison September 11, 2024 INDICATIONS: Headaches beginning 4 days ago CTDI: vol (mGy): 45.7 DLP: (mGycm): 854 Technique: Multiple CT axial sections of the brain have been obtained, 5 mm slice thickness. Contrast has not been administered. 2-D sagittal, coronal reconstructions have been obtained Low dose protocols were performed. One or more of the following dose reduction techniques were used; automated exposure control, adjustment of the mA and/or KV according to patient size, use of iterative reconstruction technique. Findings: Again noted osteolytic defect in the right parietal bone, stable in size Ventricles are not enlarged No acute hemorrhage either intra or extra-axial Chronic microvascular white matter changes noted No mass effect upon the ventricular system IMPRESSION: Large osteolytic lesion right parietal bone noted on CT brain scans dating to 2016, the lesion measured 30 mm on December 29, 2016 and measures 38 mm on the current study No interval hemorrhage or mass effect, no midline shift
[2025-02-27] MEDS: ACETAMINOPHEN w/COD 300-30 TABLET 2 TAB PO (18:46)
[2025-02-27] MEDS: ONDANSETRON ODT 4 MG TABRAP PO (18:47)
[2025-02-27] MEDS: AMOXICILLIN/POT CLAV 875 TABLET 1 TAB PO (20:10)
[2025-02-27 20:20] VITALS: RESP 16
== END 2025-02-27 20:20 | disposition home or self-care (01) ==
PROVIDERS: Emergency Provider Emergency Medicine; PCP Nurse Practitioner Family
DX: J32.9 Chronic sinusitis, unspecified (principal); E78.00 Pure hypercholesterolemia, unspecified; I10 Essential (primary) hypertension
CPT/HCPCS: 70450; 70486; 72125; 99283; Q0162; A9270

== ENCOUNTER → 2025-04-22 | Outpatient (CLI) | payer MEDICARE, MEDICAID, SELFPAY ==
--- NOTE | 2025-04-22 11:00 | XR_ITS ---
Examination: Screening digital mammography, bilateral Computer aided detection 3-D breast Tomosynthesis, bilateral Date and time of exam: 04/22/2025, 10:58 a.m. Comparisons: 02/05/2020 Indications: Screening Technique: Nonmagnified MLO, CC views of the breasts to been obtained, reconstructed from 3-D Tomosynthesis images. R2 computer aided detection program utilized for evaluation of suspicious masses and/or abnormal calcifications. 3-D Tomosynthesis images obtained. Technologist: Findings: There are scattered areas of fibroglandular density. No evidence of abnormal masses or suspicious calcifications. Impression: BI-RADS category 1: Negative findings (within normal) Recommend 1 year follow-up mammogram
== END | disposition home or self-care (01) ==
LOC: CDIM 10:51
PROVIDERS: Referring Provider Nurse Practitioner Family; Visit Provider Nurse Practitioner Family
DX: Z12.31 Encounter for screening mammogram for malignant neoplasm of breast (principal); R92.313 Mammographic fatty tissue density, bilateral breasts
CPT/HCPCS: 77063; 77067